=== PATIENT | male | born 1975 | race Caucasian/White ===

== ENCOUNTER → 2017-02-04 | Outpatient (CLI) | payer OTHER ==
--- NOTE | 2017-02-04 17:06 | DI ---
EXAM: LUMBAR SPINE 2-3 VIEWS LOCATION OF DICTATION: [place] HISTORY: ITS.REASON: DIAGNOSTIC TESTING Injury on duty. [id number] COMPARISON: No prior studies available for comparison. FINDINGS: There is suggested mild grade 1 retrolisthesis of L5 on S1. The alignment is otherwise unremarkable. There are no acute fractures. There is suggested facet arthropathy lower lumbar spine. The surrounding soft tissues are within normal limits. IMPRESSION: 1. Grade 1 retrolisthesis of L5 on S1. 2. Facet arthropathy suggested in the lower lumbar spine. 3. There is suggestion of underlying central canal/neuroforaminal stenosis at the L4-5 and L5-S1 levels which could be further evaluated with MRI. .
--- NOTE | 2017-02-04 17:07 | DI ---
EXAM: THORACIC SPINE 2 VIEW LOCATION OF DICTATION: [place] HISTORY: ITS.REASON: DIAGNOSTIC TESTING [id number] COMPARISON: No prior studies available for comparison. TECHNIQUE: FINDINGS: Normal alignment of the thoracic spine. No subluxation. No acute fractures. No significant degenerative changes. IMPRESSION: 1. Unremarkable thoracic spine. .
--- NOTE | 2017-02-04 17:08 | DI ---
EXAM: CERVICAL SPINE 4 OR 5 VIEWS LOCATION OF DICTATION: [place] HISTORY: ITS.REASON: DIAGNOSTIC TESTING [id number] COMPARISON: No prior studies available for comparison. FINDINGS: There is preservation of cervical lordosis. There is no evidence for subluxation. There are no acute fractures demonstrated. There is no significant degenerative spondylosis. The prevertebral soft tissues are within normal limits. IMPRESSION: 1. No evidence for acute fracture or subluxation. 2. No significant degenerative spondylosis. .
--- NOTE | 2017-02-04 17:10 | DI ---
EXAM: NASAL BONES 3 VIEWS LOCATION OF DICTATION: [place] HISTORY: ITS.REASON: DIAGNOSTIC TESTING [id number] COMPARISON: No prior studies available for comparison. TECHNIQUE: FINDINGS: There is complete opacification of the right maxillary sinus. Partially opacified right frontal sinus is suggested. The nasal bones are intact and within normal limits. Nasal septum is midline. Mastoid air cells are clear. IMPRESSION: 1. Complete opacification of the right maxillary sinus and partially opacified right frontal sinus. .
--- NOTE | 2017-02-04 17:10 | DI ---
EXAM: SINUS COMPLETE LOCATION OF DICTATION: [place] HISTORY: ITS.REASON: DIAGNOSTIC TESTING COMPARISON: No prior studies available for comparison. TECHNIQUE: FINDINGS: There is complete opacification of the right maxillary sinus. Partially opacified right frontal sinus is suggested. The nasal bones are intact and within normal limits. Nasal septum is midline. Mastoid air cells are clear. IMPRESSION: 1. Complete opacification of the right maxillary sinus and partially opacified right frontal sinus. .
== END ==
LOC: IMA 13:58
DX: Z02.9 Encounter for administrative examinations, unspecified (principal)